=== PATIENT | female | born 1995 | race Caucasian/White ===

== ENCOUNTER 2017-12-25 02:36 | Emergency (ER) | payer OTHER ==
[~2017-12-25] VITALS: Ht 170.1 cm; Wt 104.3 kg
[~2017-12-25 02:36] MED LIST: ELIMITE 5%60 GM T; KEFLEX500 MG PO; MACROBID100 M1 PO; MOTRIN400 MG PO; MOTRIN600 MG PO; SEPTRA DS 800 M1 TAB PO
[2017-12-25 02:37] VITALS: BP 113/68
[2017-12-25] MEDS ORDERED: Kenalog 0.5% Cr15 GM T (03:03)
[2017-12-25] MEDS ORDERED: ATARAX,VISTARIL50 MG PO (03:03)
== END 2017-12-25 03:07 | disposition home or self-care (01) ==
LOC: ED 02:36
DX: S30.861A Insect bite (nonvenomous) of abdominal wall, initial encounter (principal); Z98.890 Other specified postprocedural states; W57.XXXA Bitten or stung by nonvenomous insect and other nonvenomous arthropods, initial encounter; Y93.89 Activity, other specified; Y92.89 Other specified places as the place of occurrence of the external cause; Y99.9 Unspecified external cause status

== ENCOUNTER 2017-12-28 10:10 | Emergency (ER) | payer OTHER ==
[~2017-12-28] VITALS: Ht 170.1 cm; Wt 104.3 kg
[2017-12-28 10:10] VITALS: BP 107/63
[~2017-12-28 10:10] MED LIST changes: +ATARAX,VISTARIL50 MG PO; +Kenalog 0.5% Cr15 GM T
[2017-12-28] MEDS ORDERED: KEFLEX500 M1 PO (10:45)
[2017-12-28] MEDS ORDERED: DIFLUCAN150 MG PO (10:45)
[2017-12-28] MEDS ORDERED: SEPTDS PO (10:45)
== END 2017-12-28 11:00 | disposition home or self-care (01) ==
LOC: ED 10:10
DX: L02.211 Cutaneous abscess of abdominal wall (principal); Z79.899 Other long term (current) drug therapy

== ENCOUNTER → 2020-10-17 | Outpatient (CLI) | payer OTHER ==
[~2020-10-17] MED LIST changes: +DIFLUCAN150 MG PO; +KEFLEX500 M1 PO; +SEPTDS PO
[2020-10-17 13:16] LABS: BASO % 0.4 % (0.0-1.0); EOS # 0.1 10*3/uL (0.0-0.4); EOS % 1.1 % (1.0-4.0); HEMATOCRIT 43.4 % (37.0-47.0); LYMPH % 36.6 % (27.0-41.0); MEAN CELL VOLUME 84.4 fl (81.0-99.0); MEAN CORPUSCULAR HGB 27.2 pg (27.0-31.0); MEAN CORPUSCULAR HGB CONC 32.3 g/dl (33.0-37.0); MEAN PLATELET VOLUME 8.9 fl (9.6-12.3); MONO # 0.5 10*3/uL (0.1-1.0); MONO % 9.2 % (3.0-9.0); NEUT # 2.8 10*3/uL (2.3-7.9); NEUT % 52.5 % (47.0-73.0); PLATELET COUNT AUTOMATED 290 10*3/uL (130-400); RED BLOOD COUNT 5.14 10*6/uL (4.10-5.10); RED CELL DISTRI WIDTH 13.3 % (0-14.5); WHITE BLOOD COUNT 5.4 10*3/uL (4.8-10.8)
[2020-10-17 13:46] LABS: ALBUMIN 3.7 gm/dl (3.1-4.5); BUN 17 mg/dl (7-24); CHLORIDE 106 mmol/L (98-107); CREATININE 0.82 mg/dL (0.55-1.02); IRON 59 ug/dL (50-170); POTASSIUM 3.9 mmol/L (3.5-5.1); SGOT/AST 12 IU/L (3-35); SGPT/ALT 27 U/L (12-78); SODIUM 137 mmol/L (136-145); TOTAL IRON BINDING CAPACITY 404 ug/dl (250-450); TOTAL PROTEIN 7.5 gm/dL (6.4-8.2)
[2020-10-17 13:47] LABS: ALKALINE PHOSPHATASE 60 U/L (45-117)
[2020-10-18 14:08] LABS: ANTI-DSDNA ANTIBODIES 5 IU/mL (0-9); ANTI-RNP ANTIBODIES 0.3 AI (0.0-0.9); ANTICHROMATIN ANTIBODIES <0.2 AI (0.0-0.9); ANTISCLERODERMA-70 AB <0.2 AI (0.0-0.9); SJOGREN ANTI-SS-A <0.2 AI (0.0-0.9); SJOREN AB, ANTI-SS-B <0.2 AI (0.0-0.9)
== END | disposition home or self-care (01) ==
LOC: LAB 12:40
PROVIDERS: ATTEND Emergency Medicine
DX: F41.8 Other specified anxiety disorders (principal); L93.2 Other local lupus erythematosus; D50.9 Iron deficiency anemia, unspecified; R53.83 Other fatigue